=== PATIENT | male | born 1960 | race Caucasian/White ===

== ENCOUNTER 2022-05-20 06:19 | Emergency (ER) | payer SELFPAY ==
[2022-05-20 06:34] VITALS: BP 173/109; PULSE 83; RESP 20; TEMP 98.2; BMI 30.4
[2022-05-20] MEDS ORDERED: IBUPROFEN 400 MG TABLET (FP) PO ONE (08:43)
== END 2022-05-20 11:24 | disposition home or self-care (01) ==
LOC: JER 06:19
DX: R07.0 Pain in throat (principal)
CPT/HCPCS: 0241U-QW; 99283-25

== ENCOUNTER 2022-08-11 07:48 | Emergency (ER) | payer OTHER ==
[2022-08-11 07:57] VITALS: BP 117/75; RESP 18; TEMP 98.3; BMI 28.8
[2022-08-11] MEDS ORDERED: KETOROLAC TROMETHAMINE 30 MG/1 ML VIAL IM ONE (08:45)
[2022-08-11] MEDS ORDERED: KETOROLAC TROMETHAMINE 30 MG/1 ML VIAL ONE (08:46)
[2022-08-11 08:52] VITALS: PULSE 80
== END 2022-08-11 09:03 | disposition home or self-care (01) ==
LOC: JER 07:48 → JERFT 07:48
PROC: 3E023GC Introduction of Other Therapeutic Substance into Muscle, Percutaneous Approach (ICD-10-PCS; principal; 2022-08-11)
DX: S46.911A Strain of unspecified muscle, fascia and tendon at shoulder and upper arm level, right arm, initial encounter (principal); X50.0XXA Overexertion from strenuous movement or load, initial encounter
CPT/HCPCS: 73030-TC-RT-FY; 99284-25